=== PATIENT | female | born 1995 | race Caucasian/White ===

== ENCOUNTER 2016-11-12 12:43 | Outpatient (CLI) ==
[2015-11-15 22:14] VITALS: BMI 29.9
[2016-11-12 13:32] LABS: CHOL/HDL RATIO 3.9 (4.5-5.5)
--- NOTE | 2016-11-12 15:40 | US ---
EXAM: Bilateral lower extremity venous doppler. HISTORY: Left foot pain and swelling. COMPARISON: None available. TECHNIQUE: Multiple grayscale and color doppler images were obtained. FINDINGS: There is normal flow, compressibility and augmentation of flow within the left and right common femoral, greater saphenous, profunda, femoral, popliteal, posterior tibial, and peroneal vein s. The anterior tibial veins are not identified bilaterally. IMPRESSION: No evidence for left or right lower extremity deep vein thrombosis at the levels examined.
== END 2016-11-12 12:44 | disposition home or self-care (01) ==
LOC: RAD 12:43
PROVIDERS: ATTEND Physician Assistant Medical
DX: R60.0 Localized edema (principal); Z00.00 Encounter for general adult medical examination without abnormal findings
CPT/HCPCS: 36415; 80061; 82947

== ENCOUNTER 2016-11-21 06:16 | Outpatient (CLI) ==
[2015-11-15 22:14] VITALS: BMI 29.9
--- NOTE | 2016-11-21 11:00 | ECHOSTRESS ---
Date of Exam: 11/21/16 Ordering Physician: [facility] Reason for Echo: LOWER EXTREMITY EDEMA, STRESS TEST--NO ISCHEMIA M-Mode Normal Adult Results LV Dimensions Normal Adult Results AoV Opening excursions >1.6 LVEDD-base- 3.5-5.8 Ao root dimensions 2.0-3.7 LVESD-base- 3.1-4.6 L. Atrium dimensions 1.9-3.8 Post. Wall thickness 0.8-1.1 IV septum (thickness) 0.7-1.2 Post. Wall excursion 0.72-1.3 Septal motion Systolic motion R. Ventricular cavity 1.5-2.0 LVEF 60% Paradoxical septal wall motion 2-D: NORMAL LEFT VENTRICULAR CONTRACTILITY--RESTING AND POST EXERCISE M-MODE: MV: AV: TV: PV: CHAMBER SIZE: WALL MOTION: NORMAL LEFT VENTRICULAR CONTRACTILITY--RESTING AND POST EXERCISE PERICARDIUM: INTERPRETATION: 1. NORMAL LEFT VENTRICULAR CONTRACTILITY--RESTING AND POST EXERCISE MTDD
--- NOTE | 2016-11-21 11:13 | STRESSECHO ---
Date of Test: 11/21/16 Ordering Physician: [facility] Reason for Exam: LOWER EXTREMITY EDEMA, FAMILY HYPERTENSION Current Medications: FUROSEMIDE, MEDROL DOSE PACK Physical Findings: S1, S2, NO S3 Resting EKG: SINUS RHYTHM/NO ACUTE CHANGES Target Heart Rate: 167/197 STAGE MPH/GRADE HEART RATE BPM BLOOD PRESSURE mmhg RHYTHM S-T SEGMENT +/- UP DOWN SYMPTOMS,COMMENTS At Rest 80 128/86 SR X NONE 1 1.7/10% 150 140/90 SR X NONE 2 2.5/12% 3 3.4/14% 4 4.2/16% 5 5.0/18% Immediately after 173 144/78 SR X SHORT OF BREATH Durations of Exercise: 5:00 Maximum Heart Rate Reached: 173 Reason for Termination: SHORT OF BREATH 5 MINUTES POST EXERCISE: SINUS RHYTHM, +/- INTERPRETATION: 98% OXYGEN SATURATION WITH EXERCISE ON ROOM AIR METS 7.0 1. NO EVIDENCE OF ISCHEMIA BY ST-T WAVE 2. NO CHEST PAIN OR CHEST DISCOMFORT 3. BLOOD PRESSURE RESPONSE NORMAL 4. NO ARRHYTHMIAS NORMAL LEFT VENTRICULAR CONTRACTILITY--RESTING AND POST EXERCISE MTDD
== END 2016-11-21 06:17 | disposition home or self-care (01) ==
LOC: CAR 06:16
PROVIDERS: ATTEND Physician Assistant Medical
DX: R60.0 Localized edema (principal)

== ENCOUNTER 2018-09-15 10:06 | Outpatient (CLI) ==
[2015-11-15 22:14] VITALS: BMI 29.9
--- NOTE | 2018-09-15 11:02 | US ---
EXAM: Thyroid ultrasound History: Thyroid nodules. Comparison: None available. Technique: Multiple sonographic images through the thyroid gland were obtained. Color duplex Dopple r was used to interrogate vascular flow. Findings: The right lobe of the thyroid measures 3.9 cm x 1.8 cm x 1.4 cm and demonstrates a 1 cm dominant staci d nodule within the inferior pole. The thyroid isthmus measures 0.3 cm in thickness. The left lobe of the thyroid measures 6.1 cm x 2.6 cm x 2.0 cm and demonstrates multiple complex staci d and cystic nodules with the largest measuring 2.7 cm in the mid pole. The thyroid gland is not hypervascular. Impression: Dominant bilateral thyroid nodules as detailed above. Tissue sampling is recommended fo r the left sided nodule.
== END 2018-09-15 10:07 | disposition home or self-care (01) ==
LOC: RAD 10:06
PROVIDERS: ATTEND Physician Assistant
DX: E07.9 Disorder of thyroid, unspecified (principal)